=== PATIENT | female | born 1950 | race Caucasian/White ===

== ENCOUNTER 2017-06-28 06:39 | Emergency (ER) | payer OTHER ==
[~2017-06-28] VITALS: Ht 144.8 cm; Wt 54.0 kg
[~2017-06-28 06:39] MED LIST: ALTOPREV20 MG PO; ASPIR 8181 M1 PO; CARISOPRODOL350 MG PO; FISH OIL 1,0001 EAC7 PO; FLUOXETINE HCL20 MG PO; HYDROCHLOROTHIA25 MG PO; IRON160 M1 PO; K-DUR20 MEQ PO; KEFLEX500 MG PO; METOPROLOL TAR100 MG PO; ONE-A-DAY WOME1 EAC5 PO; RANITIDINE HCL150 MG PO; REMERON15 M2 PO; REMERON30 M2 PO; SOMA350 MG PO; VICODIN,LORT1 TABLET PO; VITAMIN B125000 MCG PO; VOLTAREN75 MG PO; ZITHROMAX Z-PA250 MG PO
[2017-06-28 07:17] LABS: EOSINOPHIL (%) 1.7 % (0-5); EOSINOPHIL COUNT 0.2 K/uL (0-0.3); HEMATOCRIT 36.2 % (36.0-46.0); IMMATURE GRANULOCYTE (%) 0.3 % (0.0-0.7); INSTRUMENT ABS NEUTROPHIL CT 7.1 K/uL; MCH 30.1 PG (29.0-34.0); MCHC 34.8 G/DL (30.0-36.0); MCV 86.6 FL (83-99); MEAN PLAT.VOLUME 8.7 uM^3 (9.5-12.4); MONOCYTE (%) 6.6 % (3-12); MONOCYTE COUNT 0.6 K/uL (0-0.8); NEUTROPHIL (%) 80.3 % (45-76); NEUTROPHIL COUNT 7.1 K/uL (1.8-6.4); PLATELET COUNT 302 K/uL (156-360); RBC DIS.WIDTH-CV 13.7 % (11.8-14.6); RBC DIS.WIDTH-SD 43.7 % (39-53); RED BLOOD COUNT 4.18 M/uL (3.80-5.20); WHITE BLOOD COUNT 8.8 K/uL (4.1-10.2)
[2017-06-28 07:34] LABS: ANION GAP 11 MEQ/L (2-14); CHLORIDE 97 MEQ/L (99-109); POTASSIUM 4.1 MEQ/L (3.7-5.4); SAMPLE HEMOLYSIS CHECK 0; SAMPLE ICTERIC CHECK 0; SAMPLE LIPEMIA CHECK 0; SODIUM 131 MEQ/L (136-147); TOTAL BILIRUBIN 0.3 MG/DL (0.0-1.0)
[2017-06-28 07:36] LABS: ADD MIUA? NO; BILIRUBIN NEGATIVE; BLOOD NEGATIVE; COLOR STRAW ((YELLOW)); GLUCOSE (STRIP) NEGATIVE; KETONES NEGATIVE; LEUKOCYTES NEGATIVE; NITRITE NEGATIVE; PROTEIN (STRIP) NEGATIVE; SPECIFIC GRAVITY 1.006 (1.000-1.030); UCUL ADDED? NO; UROBILINOGEN 0.2 MG/DL (0.2-1.0)
[2017-06-28 07:40] LABS: ALKALINE PHOSPHATASE 79 IU/L (3-129); GFR ESTIMATE (CALCULATED) > 59 mL/min/; GLUCOSE 92 mg/dL (70-99); LIPASE 29 U/L (1.0-51.0); UREA NITROGEN (BUN) 7 mg/dL (9-23)
[2017-06-28] MEDS ORDERED: FLEET ENEMA-AD118 ML PR (11:14)
[2017-06-28] MEDS ORDERED: ULTRAM50 MG PO (11:14)
[2017-06-28] MEDS ORDERED: ZOFRAN4 MG PO (11:14)
[2017-06-28] MEDS ORDERED: MIRALAX119 GM PO (11:14)
[2017-06-28 11:35] VITALS: BP 143/83
== END 2017-06-28 11:36 | disposition home or self-care (01) ==
LOC: EME 06:39
PROVIDERS: Emergency Medicine
DX: K59.00 Constipation, unspecified (principal); R10.32 Left lower quadrant pain; K50.90 Crohn's disease, unspecified, without complications; I25.2 Old myocardial infarction; K21.9 Gastro-esophageal reflux disease without esophagitis; Z88.5 Allergy status to narcotic agent
CPT/HCPCS: 74177; 80053; 81003; 83605; 83690; 85025; 99281; 99284; J2405; J3010

== ENCOUNTER 2017-09-05 21:42 | Inpatient (IN) | payer OTHER ==
[~2017-09-05] VITALS: Ht 152.4 cm; Wt 50.0 kg
[~2017-09-05 21:42] MED LIST changes: +FLEET ENEMA-AD118 ML PR; +MIRALAX119 GM PO; +ONE A DAY WOME EAC PO; -ONE-A-DAY WOME1 EAC5 PO; +ULTRAM50 MG PO; +ZOFRAN4 MG PO
[2017-09-05 23:14] LABS: HEMATOCRIT 33.7 % (36.0-46.0); HEMOGLOBIN 11.6 G/DL (11.9-15.5); MCH 30.4 PG (29.0-34.0); MCHC 34.4 G/DL (30.0-36.0); MCV 88.2 FL (83-99); PLATELET COUNT 347 K/uL (156-360); RBC DIS.WIDTH-CV 13.5 % (11.8-14.6); RBC DIS.WIDTH-SD 43.6 % (39-53); RED BLOOD COUNT 3.82 M/uL (3.80-5.20); WHITE BLOOD COUNT 11.8 K/uL (4.1-10.2)
[2017-09-05 23:24] LABS: ALBUMIN 3.7 g/dL (3.2-4.8); CHLORIDE 104 mEq/L (99-109); POTASSIUM 4.1 mEq/L (3.7-5.4); SODIUM 134 mEq/L (136-147)
[2017-09-05 23:27] LABS: GLUCOSE 153 mg/dL (70-99); TOTAL PROTEIN 6.4 g/dL (6.4-8.3)
[2017-09-05 23:28] LABS: TOTAL BILIRUBIN 0.4 mg/dL (0.0-1.0)
[2017-09-05 23:30] LABS: ALKALINE PHOSPHATASE 91 IU/L (3-129); CREATININE 1.4 mg/dL (0.6-1.3); GFR ESTIMATE (CALCULATED) 40 mL/min/
[2017-09-05 23:31] LABS: UREA NITROGEN (BUN) 23 mg/dL (9-23)
[2017-09-05 23:32] LABS: AST (GOT) 34 IU/L (2-34)
[2017-09-05 23:33] LABS: ALT (GPT) 32 IU/L (3-49)
[2017-09-05 23:34] LABS: LIPASE 37 U/L (1.0-51.0)
[2017-09-05 23:49] LABS: BASOPHIL (%) 0.3 % (0-1); EOSINOPHIL (%) 0.2 % (0-5); HEMATOLOGY COMMENT 1 SN; IMMATURE GRANULOCYTE (%) 0.3 % (0.0-0.7); LYMPHOCYTE (%) 5.8 % (15-42); LYMPHOCYTE COUNT 0.7 K/uL (1.0-2.8); MONOCYTE (%) 6.9 % (3-12); MONOCYTE COUNT 0.8 K/uL (0-0.8); NEUTROPHIL (%) 86.5 % (45-76); NEUTROPHIL COUNT 10.2 K/uL (1.8-6.4)
[2017-09-05 23:55] VITALS: BP 105/58
[2017-09-06 01:29] LABS: INTER. NORMALIZED RATIO 1.1
[2017-09-06 01:31] LABS: PTT 24.1 SEC (25-37)
[2017-09-06 03:48] LABS: HEMATOCRIT 30.2 % (36.0-46.0); HEMOGLOBIN 10.3 G/DL (11.9-15.5); MCH 30.6 PG (29.0-34.0); MCHC 34.1 G/DL (30.0-36.0); MCV 89.6 FL (83-99); PLATELET COUNT 307 K/uL (156-360); RBC DIS.WIDTH-CV 13.6 % (11.8-14.6); RBC DIS.WIDTH-SD 44.2 % (39-53); RED BLOOD COUNT 3.37 M/uL (3.80-5.20); WHITE BLOOD COUNT 13.2 K/uL (4.1-10.2)
[2017-09-06 03:56] LABS: CHLORIDE 108 mEq/L (99-109); POTASSIUM 4.3 mEq/L (3.7-5.4); SODIUM 138 mEq/L (136-147)
[2017-09-06 03:57] LABS: GLUCOSE 144 mg/dL (70-99)
[2017-09-06 04:01] LABS: CREATININE 1.5 mg/dL (0.6-1.3); GFR ESTIMATE (CALCULATED) 37 mL/min/
[2017-09-06 04:02] LABS: UREA NITROGEN (BUN) 19 mg/dL (9-23)
[2017-09-06 05:09] VITALS: BP 101/57
[2017-09-06 05:32] VITALS: BP 101/57
[2017-09-06 12:00] VITALS: BP 108/56
[2017-09-06 15:15] VITALS: BP 115/59
[2017-09-06 20:00] VITALS: BP 121/58
[2017-09-06 23:55] VITALS: BP 105/88
[2017-09-07 04:00] VITALS: BP 134/64
[2017-09-07 06:08] LABS: HEMATOCRIT 24.9 % (36.0-46.0); HEMOGLOBIN 8.2 G/DL (11.9-15.5); MCH 30.1 PG (29.0-34.0); MCHC 32.9 G/DL (30.0-36.0); MCV 91.5 FL (83-99); PLATELET COUNT 275 K/uL (156-360); RBC DIS.WIDTH-CV 14.5 % (11.8-14.6); RBC DIS.WIDTH-SD 48.1 % (39-53); RED BLOOD COUNT 2.72 M/uL (3.80-5.20); WHITE BLOOD COUNT 13.6 K/uL (4.1-10.2)
[2017-09-07 06:40] LABS: ALBUMIN 2.7 G/DL (3.2-4.8); ALKALINE PHOSPHATASE 73 IU/L (3-129); ALT (GPT) 25 IU/L (3-49); AST (GOT) 18 IU/L (2-34); CHLORIDE 109 MEQ/L (99-109); GFR ESTIMATE (CALCULATED) > 59 mL/min/; POTASSIUM 4.8 MEQ/L (3.7-5.4); SODIUM 135 MEQ/L (136-147); TOTAL BILIRUBIN 0.2 MG/DL (0.0-1.0); TOTAL PROTEIN 4.8 G/DL (6.4-8.3); UREA NITROGEN (BUN) 19 mg/dL (9-23)
[2017-09-07 07:21] VITALS: BP 138/64
[2017-09-07 07:21] LABS: GLUCOSE 91 mg/dL (70-99)
[2017-09-07 07:22] LABS: CREATININE 0.9 MG/DL (0.6-1.3)
[2017-09-07] MEDS ORDERED: VOLTAREN-XR100 MG PO (11:46)
[2017-09-07] MEDS ORDERED: VENTOLIN HFA18 GM IH (11:47)
[2017-09-07 12:13] VITALS: BP 150/70
[2017-09-07 16:15] VITALS: BP 151/69
[2017-09-07 20:28] VITALS: BP 142/80
[2017-09-08] VITALS (8 sets, daily range): BP systolic 134–190; BP diastolic 69–81
[2017-09-08 04:56] LABS: HEMATOCRIT 25.7 % (36.0-46.0); HEMOGLOBIN 8.7 G/DL (11.9-15.5); MCH 30.4 PG (29.0-34.0); MCHC 33.9 G/DL (30.0-36.0); MCV 89.9 FL (83-99); PLATELET COUNT 291 K/uL (156-360); RBC DIS.WIDTH-CV 13.8 % (11.8-14.6); RBC DIS.WIDTH-SD 45.7 % (39-53); RED BLOOD COUNT 2.86 M/uL (3.80-5.20); WHITE BLOOD COUNT 12.9 K/uL (4.1-10.2)
[2017-09-08 05:21] LABS: CHLORIDE 109 mEq/L (99-109); POTASSIUM 4.6 mEq/L (3.7-5.4); SODIUM 136 mEq/L (136-147)
[2017-09-08 05:23] LABS: GLUCOSE 91 mg/dL (70-99)
[2017-09-08 05:27] LABS: CREATININE 0.7 mg/dL (0.6-1.3); GFR ESTIMATE (CALCULATED) > 59 mL/min/; UREA NITROGEN (BUN) 9 mg/dL (9-23)
[2017-09-09] VITALS (7 sets, daily range): BP systolic 119–170; BP diastolic 70–80
[2017-09-09 04:57] LABS: HEMATOCRIT 28.3 % (36.0-46.0); HEMOGLOBIN 9.6 G/DL (11.9-15.5); MCH 29.9 PG (29.0-34.0); MCHC 33.9 G/DL (30.0-36.0); MCV 88.2 FL (83-99); PLATELET COUNT 325 K/uL (156-360); RBC DIS.WIDTH-CV 13.5 % (11.8-14.6); RED BLOOD COUNT 3.21 M/uL (3.80-5.20); WHITE BLOOD COUNT 10.1 K/uL (4.1-10.2)
[2017-09-09 05:08] LABS: CHLORIDE 108 mEq/L (99-109); POTASSIUM 4.2 mEq/L (3.7-5.4); SODIUM 135 mEq/L (136-147)
[2017-09-09 05:14] LABS: CREATININE 0.7 mg/dL (0.6-1.3); GFR ESTIMATE (CALCULATED) > 59 mL/min/
[2017-09-09 05:15] LABS: UREA NITROGEN (BUN) 5 mg/dL (9-23)
[2017-09-09 05:17] LABS: GLUCOSE 114 mg/dL (70-99)
[2017-09-10 07:35] VITALS: BP 126/75
[2017-09-10 15:55] VITALS: BP 155/77
[2017-09-10 19:21] VITALS: BP 150/70
[2017-09-10 23:54] VITALS: BP 145/72
[2017-09-11 03:58] VITALS: BP 164/92
[2017-09-11 04:10] VITALS: BP 150/90
[2017-09-11 07:15] VITALS: BP 136/76
[2017-09-11] MEDS ORDERED: HYDROCODON-ACE1 EAC7 PO (09:39)
[2017-09-11] MEDS ORDERED: PROTONIX40 MG PO (09:39)
== END 2017-09-11 16:35 | disposition home or self-care (01) | DRG 328 ==
LOC: EME 21:42 → ENRESERV 09-06 01:46 → SDC 09-06 02:02 → EME 09-06 02:02 → 5EAST 09-06 03:12 → 2SOUTH 09-06 03:12 → 4EAST 09-06 03:12 → ENRESERV 09-09 14:21 → 5EAST 09-09 17:04
PROVIDERS: Emergency Medicine; Physician Assistant Surgical; Surgery
DX: K25.5 Chronic or unspecified gastric ulcer with perforation (principal); I10 Essential (primary) hypertension; M19.049 Primary osteoarthritis, unspecified hand; K21.9 Gastro-esophageal reflux disease without esophagitis; I25.2 Old myocardial infarction; Z79.1 Long term (current) use of non-steroidal anti-inflammatories (NSAID); Z79.82 Long term (current) use of aspirin; Z90.49 Acquired absence of other specified parts of digestive tract
CPT/HCPCS: 74177; 80048; 80053; 81003; 83605; 83690; 85025; 85027; 85610; 85730; 86850; 86900; 86901; 88305; 88342 TC; 94799; 97530 GO; 97530 GP; 99281; 99285; C9113; J0330; J1170; J1650; J2250; J2405; J2710; J3010; J7030; S0074

== ENCOUNTER → 2018-01-07 | Outpatient (CLI) | payer OTHER ==
[~2018-01-07] VITALS: Ht 144.8 cm; Wt 53.1 kg
[~2018-01-07] MED LIST changes: +HYDROCODON-ACE1 EAC7 PO; +PROTONIX40 MG PO; +VENTOLIN HFA18 GM IH; +VOLTAREN-XR100 MG PO
== END | disposition home or self-care (01) ==
LOC: AMB 08:30
PROC: 0DJ08ZZ Inspection of Upper Intestinal Tract, Via Natural or Artificial Opening Endoscopic (ICD-10-PCS; principal; 2018-01-07)
DX: Z09 Encounter for follow-up examination after completed treatment for conditions other than malignant neoplasm (principal); I10 Essential (primary) hypertension; I25.2 Old myocardial infarction; E78.5 Hyperlipidemia, unspecified; Z79.82 Long term (current) use of aspirin
CPT/HCPCS: 93005